=== PATIENT | male | born 1990 | race African-American/Black ===

== ENCOUNTER 2023-07-10 07:10 | Emergency (ER) | payer OTHER ==
[~2023-07-10] VITALS: Ht 177.8 cm; Wt 90.7 kg
[2023-07-10 08:04] LABS: BASOPHILS # (AUTO) 0.1 K/uL (0.0-0.2); BASOPHILS % (AUTO) 0.9 % (0.0-2.0); EOSINOPHILS # (AUTO) 0.1 K/uL (0.0-0.7); EOSINOPHILS % (AUTO) 1.5 % (0.0-6.0); HEMATOCRIT 42 % (39-51); LYMPHOCYTES # (AUTO) 1.6 K/uL (0.8-4.8); LYMPHOCYTES % (AUTO) 25.6 % (20.0-44.0); MEAN CORPUSCULAR HEMOGLOBIN 29 PG (26.0-33.0); MEAN CORPUSCULAR HGB CONC 33 g/dl (31.0-36.0); MEAN CORPUSCULAR VOLUME 89 fL (80-96); MONOCYTES # (AUTO) 0.6 K/uL (0.1-1.30); MONOCYTES % (AUTO) 10.4 % (2.0-12.0); NEUTROPHILS # (AUTO) 3.8 K/uL (1.8-8.9); NEUTROPHILS % (AUTO) 61.6 % (43.0-81.0); PLATELET COUNT (AUTO) 239 K/uL (150-450); RED BLOOD CELL COUNT(AUTO) 4.78 MIL/uL (4.5-6.0); RED CELL DISTRIBUTION WIDTH 13.7 % (11.5-15.0); WHITE BLOOD COUNT (AUTO) 6.2 K/uL (4.3-11.0)
[2023-07-10 08:14] LABS: CALCIUM, SERUM 8.9 mg/dL (8.5-10.1); CARBON DIOXIDE 30 mmol/L (21-32); CHLORIDE 102 mmol/L (98-107); CREATININE 1.2 mg/dL (0.6-1.3); GLUCOSE 93 mg/dL (74-106); SODIUM SERUM 136 mmol/L (136-145); UREA NITROGEN, BLOOD 13 mg/dL (7-18)
[2023-07-10 08:20] LABS: ALANINE AMINOTRANSFERASE 26 U/L (12-78); ALBUMIN 4.1 g/dL (3.4-5.0); ALCOHOL, BLOOD < 3 mg/dL (0-10); ALKALINE PHOSPHATASE 104 U/L (46-116); ASPARTATE AMINOTRANSFERASE 13 U/L (15-37); BILIRUBIN,DIRECT 0.1 mg/dL (0.0-0.2); BILIRUBIN,TOTAL 0.2 mg/dL (0.2-1.0); TOTAL PROTEIN, SERUM 7.5 g/dL (6.4-8.2)
[2023-07-10 08:21] LABS: ACETAMINOPHEN <10 ug/ml (10-30); SALICYLATE 2.1 mg/dL (2.8-20.0)
[2023-07-10 09:48] VITALS: BP 135/77; TEMP 97.9; O2SAT 99
== END 2023-07-10 10:18 ==
LOC: EDBD 07:14 → ER 07:14
DX: R45.851 Suicidal ideations (principal); F20.9 Schizophrenia, unspecified; Z60.2 Problems related to living alone; Z20.822 Contact with and (suspected) exposure to COVID-19
CPT/HCPCS: 99285; 85025; 80048; 80076; 36415; 87426; 80143; 80320; C9803; G0480